=== PATIENT | male | born 1965 | race Hispanic/Latino ===

== ENCOUNTER 2019-04-23 01:36 | Inpatient (IN) | payer OTHER ==
[~2019-04-23] VITALS: Ht 167.6 cm; Wt 67.4 kg
[2019-04-23 02:08] LABS: BASOPHILS % (AUTO) 0.6 % (0.0-5.0); EOSINOPHILS % (AUTO) 1.8 % (0.0-8.0); HEMATOCRIT 37.1 % (42-54); MEAN CORPUSCULAR HGB CONC 34.9 g/dL (32.0-36.0); MEAN CORPUSCULAR VOLUME 88.9 fL (79-99); MONOCYTES % (AUTO) 11.2 % (3.0-13.0); NEUTROPHILS % (AUTO) 77.4 % (40.0-77.0); NUCLEATED RED BLOOD CELLS 0.1 % (0.0-0.19); PLATELET COUNT (AUTO) 405 K/uL (130-400); RED BLOOD CELL COUNT(AUTO) 4.18 MIL/uL (4.50-6.20); RED CELL DISTRIBUTION WIDTH 12.1 % (11.0-15.5); WHITE BLOOD COUNT (AUTO) 11.7 K/uL (4.8-10.8)
[2019-04-23 02:19] LABS: APPEARANCE,URINE Clear (CLEAR); BILIRUBIN,URINE Negative (NEGATIVE); COLOR,URINE Yellow (YELLOW); GLUCOSE, URINE (UA) >=1000 mg/dL (NEGATIVE); KETONES,URINE Negative (NEGATIVE); LEUKOCYTE ESTERASE ,URINE Negative (NEGATIVE); NITRATE,URINE Negative (NEGATIVE); OCCULT BLOOD,URINE Negative (NEGATIVE); PROTEIN,URINE Negative (NEGATIVE)
[2019-04-23 02:25] LABS: INR 1.03 (0.85-1.15); PROTHROMBIN TIME 10.8 SEC (9.6-11.6)
[2019-04-23 02:28] LABS: ALBUMIN 2.7 g/dL (3.5-5.0); BILIRUBIN,DIRECT 0.2 mg/dL (0.0-0.3); BILIRUBIN,TOTAL 0.6 mg/dL (0.2-1.0); CREATININE 1.2 mg/dL (0.5-1.5); POTASSIUM 4.5 mmol/L (3.5-5.1); TOTAL PROTEIN, SERUM 6.8 g/dL (6.0-8.3)
[2019-04-23 03:11] LABS: BACTERIA,URINE Few /HPF (None Seen); RBC,URINE None Seen /HPF (0-1); SQUAMOUS EPITHELIAL CELL,UR 0-2 /HPF (0-2); URIC ACID CRYSTALS,URINE Few /LPF (None Seen); WBC,URINE 0-1 /HPF (0-1)
[2019-04-23 03:12] LABS: HYALINE CASTS, URINE 0-1 /LPF (0-1 /LPF)
[2019-04-23] MEDS ORDERED: ONDANSETRON HCL 4 MG/2 ML VIAL ONE (04:12)
[2019-04-23] MEDS ORDERED: MORPHINE SULFATE 2 MG/ML 1ML SYG ONE (04:12)
[2019-04-23] MEDS ORDERED: ZOSYN 3.375GM+NS 50ML 50 ML IV ONE (04:17)
[2019-04-23] MEDS ORDERED: SODIUM CHLORIDE 0.9% 1000ML 1,000 ML IV SCH (05:24)
[2019-04-23] MEDS ORDERED: ACETAMINOPHEN 325 MG TAB PO PRN ×2 (05:30)
[2019-04-23] MEDS ORDERED: INSULIN HUMULIN R 100 UNIT/ML 3ML ONE (07:41)
[2019-04-23] MEDS ORDERED: FAMOTIDINE/PF 20 MG/2 ML VIAL IV ONE (08:28)
[2019-04-23] MEDS ORDERED: MORPHINE SULFATE 4 MG/1ML SYG ONE (08:51)
[2019-04-23] MEDS ORDERED: SODIUM CHLORIDE 0.9% 1000ML 1,000 ML IV ONE (08:52)
[2019-04-23 09:10] VITALS: BP 147/92
--- NOTE | 2019-04-23 09:15 | NUR ---
Direct admit from the ER with c/o pain to abdomen and increased BS levels. Addendum: 04/23/19 at 1113 by PARISH MASSEY RN RN Amended: Links added.
--- NOTE | 2019-04-23 10:02 | NUR ---
Notified Dr. Thorpe of consult.
[2019-04-23] MEDS ORDERED: DICY10 PO ×2 (11:50)
[2019-04-23] MEDS ORDERED: [UNRECOGNIZED DRUG - CODE] MC ×4 (11:50)
[2019-04-23] MEDS ORDERED: PANT40TA25 PO ×2 (11:50)
[2019-04-23] MEDS ORDERED: SIME40DR51 PO ×2 (11:50)
[2019-04-23] MEDS ORDERED: KETO10TA2 PO ×2 (11:50)
[2019-04-23] MEDS ORDERED: PROP40TA7 PO ×2 (11:50)
[2019-04-23] MEDS ORDERED: RANI300C PO ×2 (11:50)
[2019-04-23] MEDS: FAMOTIDINE/PF 20 MG/2 ML VIAL IV SCH ×2 (11:50→21:30)
[2019-04-23] MEDS ORDERED: FURO40TA7 PO ×2 (11:50)
[2019-04-23] MEDS ORDERED: VITA400C70 PO ×2 (11:50)
[2019-04-23] MEDS ORDERED: METF500S7 PO ×2 (11:50)
[2019-04-23 12:00] VITALS: BP 137/88
[2019-04-23] MEDS: CEFTRIAXONE SODIUM 1 GM IVP SCH (12:28)
[2019-04-23] MEDS: INSULIN HUMULIN R 100 UNIT/ML 3ML SQ SCH ×3 (12:36→21:00)
[2019-04-23] MEDS: ONDANSETRON HCL 4 MG/2 ML VIAL IV PRN (13:19)
[2019-04-23] MEDS: MORPHINE SULFATE 4 MG/1ML SYG IV PRN ×3 (14:05→22:49)
[2019-04-23 16:00] VITALS: BP 140/95
--- NOTE | 2019-04-23 16:00 | NUR ---
INITIAL Met w pt and family- i\employed, indp of adls, no dme,/ no insurance, /community resource pktt given new dx Yoandy gomez to follow Addendum: 04/25/19 at 0842 by MOLLY AMAYA RN CM Amended: Links added.
[2019-04-23 20:29] VITALS: BP 148/99
[2019-04-23] MEDS: INSULIN GLARGINE 100 UNITS/ML 10 ML VIAL SQ SCH (21:48)
[2019-04-24 00:21] VITALS: BP 152/98
[2019-04-24] MEDS: MORPHINE SULFATE 4 MG/1ML SYG IV PRN ×5 (03:12→21:30)
[2019-04-24 04:43] VITALS: BP 142/91
[2019-04-24 05:18] LABS: HEMATOCRIT 37.2 % (42-54); MEAN CORPUSCULAR HEMOGLOBIN 30.6 pg (27.0-33.0); MEAN CORPUSCULAR HGB CONC 34.7 g/dL (32.0-36.0); MEAN CORPUSCULAR VOLUME 88.2 fL (79-99); PLATELET COUNT (AUTO) 443 K/uL (130-400); RED BLOOD CELL COUNT(AUTO) 4.22 MIL/uL (4.50-6.20); RED CELL DISTRIBUTION WIDTH 12.2 % (11.0-15.5); WHITE BLOOD COUNT (AUTO) 14.1 K/uL (4.8-10.8)
[2019-04-24 05:32] LABS: ALBUMIN 2.5 g/dL (3.5-5.0); BILIRUBIN,TOTAL 0.5 mg/dL (0.2-1.0); CREATININE 1.1 mg/dL (0.5-1.5); POTASSIUM 4.7 mmol/L (3.5-5.1); TOTAL PROTEIN, SERUM 6.7 g/dL (6.0-8.3)
[2019-04-24] MEDS: INSULIN HUMULIN R 100 UNIT/ML 3ML SQ SCH ×4 (06:59→21:00)
[2019-04-24] MEDS: INSULIN GLARGINE 100 UNITS/ML 10 ML VIAL SQ SCH ×2 (07:09→21:42)
[2019-04-24 08:00] VITALS: BP 151/94
[2019-04-24] MEDS: FAMOTIDINE/PF 20 MG/2 ML VIAL IV SCH ×2 (08:42→21:30)
[2019-04-24] MEDS: CEFTRIAXONE SODIUM 1 GM IVP SCH (08:42)
[2019-04-24] MEDS: ENOXAPARIN SODIUM 40 MG/0.4 ML SYRINGE SQ SCH (08:43)
[2019-04-24] MEDS: ONDANSETRON HCL 4 MG/2 ML VIAL IV PRN (08:43)
[2019-04-24 12:06] VITALS: BP 128/82
--- NOTE | 2019-04-24 13:30 | NUR ---
ALESHA Salmon with Dr. Thorpe in to see pt, states Dr. Thorpe will be in to see the pt. tomorrow and decide on course of action.
[2019-04-24 16:00] VITALS: BP 160/97
--- NOTE | 2019-04-24 18:35 | NUR ---
Notified Kam THOMAS, pt. with anxiety, BP 137/100, HR 118, O2 sat 99%, BS 181. Received orders.
[2019-04-24] MEDS ORDERED: CLONIDINE HCL 0.1 MG TABLET PO PRN (18:45)
[2019-04-24] MEDS: LORAZEPAM 2 MG/ML 1 ML VIAL IVP PRN (19:05)
--- NOTE | 2019-04-24 19:05 | NUR ---
Pt. continues to be anxious, BP has come down below the perimeters for clonidine. Administered the Ativan after inst. pt. and family. Endorsed pt. to oncoming nurse.
[2019-04-24 20:00] VITALS: BP 146/91
[2019-04-24] MEDS: PROPRANOLOL HCL 20 MG TAB PO SCH (21:30)
[2019-04-25] VITALS: BP 139/94
[2019-04-25] MEDS: MORPHINE SULFATE 4 MG/1ML SYG IV PRN ×4 (02:05→17:27)
[2019-04-25 04:00] VITALS: BP 139/95
[2019-04-25 04:43] LABS: BASOPHILS % (AUTO) 0.7 % (0.0-5.0); EOSINOPHILS % (AUTO) 1.2 % (0.0-8.0); HEMATOCRIT 37.7 % (42-54); LYMPHOCYTES % (AUTO) 7.4 % (21.0-51.0); MEAN CORPUSCULAR HEMOGLOBIN 30.8 pg (27.0-33.0); MEAN CORPUSCULAR HGB CONC 34.7 g/dL (32.0-36.0); MEAN CORPUSCULAR VOLUME 88.8 fL (79-99); MONOCYTES % (AUTO) 8.7 % (3.0-13.0); PLATELET COUNT (AUTO) 442 K/uL (130-400); RED BLOOD CELL COUNT(AUTO) 4.25 MIL/uL (4.50-6.20); RED CELL DISTRIBUTION WIDTH 12.2 % (11.0-15.5); WHITE BLOOD COUNT (AUTO) 13.7 K/uL (4.8-10.8)
[2019-04-25 04:59] LABS: CREATININE 1.2 mg/dL (0.5-1.5); POTASSIUM 5.6 mmol/L (3.5-5.1)
[2019-04-25] MEDS: LORAZEPAM 2 MG/ML 1 ML VIAL IVP PRN ×2 (05:37→17:27)
[2019-04-25] MEDS: INSULIN HUMULIN R 100 UNIT/ML 3ML SQ SCH ×4 (06:18→21:00)
[2019-04-25] MEDS: INSULIN GLARGINE 100 UNITS/ML 10 ML VIAL SQ SCH ×2 (06:20→21:00)
[2019-04-25 07:46] VITALS: BP 124/78
[2019-04-25] MEDS: LOSARTAN 100 MG TABLET PO SCH (08:40)
[2019-04-25] MEDS: FAMOTIDINE/PF 20 MG/2 ML VIAL IV SCH ×2 (08:40→21:37)
[2019-04-25] MEDS: PROPRANOLOL HCL 20 MG TAB PO SCH ×2 (08:40→21:00)
[2019-04-25] MEDS: CEFTRIAXONE SODIUM 1 GM IVP SCH (08:43)
[2019-04-25] MEDS: ENOXAPARIN SODIUM 40 MG/0.4 ML SYRINGE SQ SCH (08:43)
[2019-04-25] MEDS: SODIUM CHLORIDE 0.9% 1000ML 1,000 ML IV SCH (09:04)
--- NOTE | 2019-04-25 10:30 | NUR ---
AWARE OF CONSULT PER MD, CONSULT ONCOLOGY DUE TO PATIENT ALREADY HAVING AN EGD AND COLONOSCOPY WITH RESULTS IN CHART. CALLED, MESSAGE LEFT. RETURN CALL PENDING. PATIENT AND FAMILY AWARE. Addendum: 04/25/19 at 2009 by RAF DENSON RN RN Amended: Links added.
[2019-04-25 11:05] VITALS: BP 129/88
--- NOTE | 2019-04-25 12:33 | NUR ---
RD Notification Patient with Abdominal mass, Ascites, uncontrolled NIDDM, pending GI consult. Current diet 60gm CCD, no Juice. Patient LBM 04/24/19. Patient monitored labs: Na 123, K 5.6, Cl 87, BUN 27, Glu 183, Alb 2.5. RD to continue to monitor. Please notify RD as nutritional concerns arise. Thank you. Addendum: 04/25/19 at [address] Amended: Links added.
[2019-04-25 15:18] LABS: APPEARANCE,URINE Clear (CLEAR); BILIRUBIN,URINE Small (NEGATIVE); COLOR,URINE Dark Yellow (YELLOW); GLUCOSE, URINE (UA) Negative (NEGATIVE); KETONES,URINE Trace mg/dL (NEGATIVE); LEUKOCYTE ESTERASE ,URINE Trace (NEGATIVE); NITRATE,URINE Negative (NEGATIVE); OCCULT BLOOD,URINE Negative (NEGATIVE); PROTEIN,URINE Negative (NEGATIVE); SODIUM,URINE RANDOM < 15 mmol/l (40-220)
[2019-04-25 15:29] LABS: BACTERIA,URINE Few /HPF (None Seen); RBC,URINE 0-1 /HPF (0-1); SQUAMOUS EPITHELIAL CELL,UR Rare /HPF (0-2); URIC ACID CRYSTALS,URINE Few /LPF (None Seen); WBC,URINE 0-1 /HPF (0-1)
[2019-04-25 16:36] VITALS: BP 111/71
[2019-04-25 20:00] VITALS: BP 91/64
[2019-04-26] VITALS (10 sets, daily range): BP systolic 98–135; BP diastolic 62–83
[2019-04-26] MEDS: MORPHINE SULFATE 2 MG/ML 1ML SYG IV PRN ×2 (01:45→06:24)
[2019-04-26] MEDS: SODIUM CHLORIDE 0.9% 1000ML 1,000 ML IV SCH ×2 (02:30→10:40)
[2019-04-26] MEDS: INSULIN HUMULIN R 100 UNIT/ML 3ML SQ SCH ×4 (05:51→21:00)
[2019-04-26] MEDS: INSULIN GLARGINE 100 UNITS/ML 10 ML VIAL SQ SCH ×2 (06:12→21:00)
[2019-04-26 06:38] LABS: CREATININE 1.1 mg/dL (0.5-1.5); THYROID STIMULATING HORMONE 2.6 uIU/mL (0.36-3.74); URIC ACID 8.6 mg/dL (2.6-7.2)
[2019-04-26 06:51] LABS: BASOPHILS % (AUTO) 0.7 % (0.0-5.0); EOSINOPHILS % (AUTO) 1.4 % (0.0-8.0); LYMPHOCYTES % (AUTO) 8.9 % (21.0-51.0); MEAN CORPUSCULAR HEMOGLOBIN 30.2 pg (27.0-33.0); MEAN CORPUSCULAR HGB CONC 34.2 g/dL (32.0-36.0); MEAN CORPUSCULAR VOLUME 88.1 fL (79-99); MONOCYTES % (AUTO) 8.9 % (3.0-13.0); NEUTROPHILS % (AUTO) 80.1 % (40.0-77.0); PLATELET COUNT (AUTO) 486 K/uL (130-400); RED CELL DISTRIBUTION WIDTH 12.3 % (11.0-15.5); WHITE BLOOD COUNT (AUTO) 13.3 K/uL (4.8-10.8)
[2019-04-26 08:24] LABS: APPEARANCE,URINE Clear (CLEAR); BILIRUBIN,URINE Negative (NEGATIVE); COLOR,URINE Yellow (YELLOW); GLUCOSE, URINE (UA) Negative (NEGATIVE); KETONES,URINE 40 mg/dL (NEGATIVE); LEUKOCYTE ESTERASE ,URINE Trace (NEGATIVE); NITRATE,URINE Negative (NEGATIVE); OCCULT BLOOD,URINE Negative (NEGATIVE); PROTEIN,URINE Negative (NEGATIVE)
[2019-04-26 08:27] LABS: INR 1.07 (0.85-1.15); PARTIAL THROMBOPLASTIN TIME 33.9 SEC (26.3-35.5); PROTHROMBIN TIME 11.2 SEC (9.6-11.6)
[2019-04-26 08:31] LABS: BACTERIA,URINE None Seen /HPF (None Seen); FINE GRANULAR CASTS,URINE 0-2 /LPF (None Seen); RBC,URINE 0-1 /HPF (0-1); SQUAMOUS EPITHELIAL CELL,UR 0-2 /HPF (0-2); URIC ACID CRYSTALS,URINE Moderate /LPF (None Seen); WBC,URINE 0-1 /HPF (0-1)
[2019-04-26] MEDS: LOSARTAN 100 MG TABLET PO SCH (09:00)
[2019-04-26] MEDS: ENOXAPARIN SODIUM 40 MG/0.4 ML SYRINGE SQ SCH (09:00)
[2019-04-26] MEDS: FAMOTIDINE/PF 20 MG/2 ML VIAL IV SCH ×2 (10:39→21:22)
[2019-04-26] MEDS: FOLIC ACID/VITAMIN B COMP W-C 1 MG CAPSULE PO SCH (10:39)
[2019-04-26] MEDS: PROPRANOLOL HCL 20 MG TAB PO SCH ×2 (10:39→21:22)
[2019-04-26] MEDS: CEFTRIAXONE SODIUM 1 GM IVP SCH (10:40)
--- NOTE | 2019-04-26 12:15 | NUR ---
U/S GD PARACENTESIS PROCEDURE PERFORMED BY DR Shefali SALAZAR. PUNCTURE SITE RLQ AND PATIENT TOLERATED PROCEDURE WELL. TOTAL REMOVED 6.2 LITERS OF CLOUDY YELLOW FLUID. END OF PROCEDURE AT 1200. CATHETER REMOVED AND DRESSING APPLIED. NO BLEEDING NOTED. REPORT GIVEN TO Arvind NICOLE RN AND PATIENT TRANSPORTED TO [facility] VIA W/C AT 1215. AAO X3 WITH NO C/O PAIN. SPECIMEN SENT TO LAB.
[2019-04-26] MEDS ORDERED: ALBUMIN (HUMAN) 25% 200 ML IV ONE (13:00)
[2019-04-26 13:16] LABS: APPEARANCE BODY FLUID CLEAR (CLEAR); BODY FLUID WBC 865 /cu. mm.; COLOR,BODY FLUID YELLOW (LT YELLOW); SPECIMENTYPE,BODY FLUID ASCITES; TOTAL VOLUME,BODY FLUID 6300 mL
[2019-04-26 13:17] LABS: BODY FLUID RBC 2960 /cu. mm.
[2019-04-26 13:27] LABS: BF EOSINOPHIL 1 %; BF LYMPHOCYTE 79 %; BF MESOTHELIAL 3 %
--- NOTE | 2019-04-26 17:41 | NUR ---
WAITING FOR ONCOLOGY INPUT PT patricia amaro many family members at bedside- eating poorly and using pain medication. CM to follow Addendum: 04/26/19 at 1742 by MOLLY AMAYA RN CM Amended: Links added.
--- NOTE | 2019-04-26 20:00 | NUR ---
DR. ART AT BEDSIDE; ORDERING BIOPSY OF MESSENTERIC MASS.
[2019-04-27] VITALS (14 sets, daily range): BP systolic 82–132; BP diastolic 44–70
[2019-04-27] MEDS: LORAZEPAM 2 MG/ML 1 ML VIAL IVP PRN ×3 (02:30→17:26)
[2019-04-27] MEDS: SODIUM CHLORIDE 0.9% 1000ML 1,000 ML IV SCH (04:06)
[2019-04-27] MEDS: MORPHINE SULFATE 2 MG/ML 1ML SYG IV PRN ×2 (04:07→09:52)
[2019-04-27 05:45] LABS: BASOPHILS % (AUTO) 0.4 % (0.0-5.0); EOSINOPHILS % (AUTO) 0.9 % (0.0-8.0); HEMATOCRIT 35.3 % (42-54); LYMPHOCYTES % (AUTO) 6.7 % (21.0-51.0); MEAN CORPUSCULAR HEMOGLOBIN 30.7 pg (27.0-33.0); MEAN CORPUSCULAR HGB CONC 34.7 g/dL (32.0-36.0); MEAN CORPUSCULAR VOLUME 88.3 fL (79-99); MONOCYTES % (AUTO) 9.3 % (3.0-13.0); NEUTROPHILS % (AUTO) 82.7 % (40.0-77.0); NUCLEATED RED BLOOD CELLS 0.1 % (0.0-0.19); PLATELET COUNT (AUTO) 402 K/uL (130-400); WHITE BLOOD COUNT (AUTO) 12.3 K/uL (4.8-10.8)
[2019-04-27 05:50] LABS: CREATININE 0.8 mg/dL (0.5-1.5); POTASSIUM 4.9 mmol/L (3.5-5.1)
[2019-04-27] MEDS: INSULIN HUMULIN R 100 UNIT/ML 3ML SQ SCH ×4 (06:59→21:34)
[2019-04-27] MEDS: INSULIN GLARGINE 100 UNITS/ML 10 ML VIAL SQ SCH ×2 (07:30→21:34)
[2019-04-27] MEDS: ENOXAPARIN SODIUM 40 MG/0.4 ML SYRINGE SQ SCH (09:00)
[2019-04-27] MEDS: FOLIC ACID/VITAMIN B COMP W-C 1 MG CAPSULE PO SCH (09:00)
[2019-04-27] MEDS: PROPRANOLOL HCL 20 MG TAB PO SCH ×2 (09:00→21:37)
[2019-04-27] MEDS: LOSARTAN 100 MG TABLET PO SCH (09:00)
[2019-04-27] MEDS: FAMOTIDINE/PF 20 MG/2 ML VIAL IV SCH ×2 (09:52→21:37)
[2019-04-27] MEDS: CEFTRIAXONE SODIUM 1 GM IVP SCH (09:52)
[2019-04-27] MEDS ORDERED: MIDAZOLAM HCL 1 MG/ML 2ML VIAL ONE (13:01)
[2019-04-27] MEDS ORDERED: FENTANYL CITRATE PF 50 MCG/1 ML 2ML VIAL ONE (13:01)
--- NOTE | 2019-04-27 13:35 | NUR ---
CT GUIDED BIOPSY MESENTERIC MASS PROCEDURE PERFORMED BY DR RM. PUNCTURE SITE LEFT LATERAL RIB CAGE AND PATIENT TOLERATED PROCEDURE WELL. TOTAL 4 SPECIMENS REMOVED OF MESENTERIC MASS. END OF PROCEDURE AT 1347. CATHETER REMOVED AND DRESSING APPLIED. NO BLEEDING NOTED. POST CT SCAN NO PNEUMOTHORAX SEEN PER DR. RM. REPORT GIVEN TO MACHO KURTZ AND PATIENT TRANSPORTED TO [facility] VIA BED AT 1405. PT STABLE, AAO X3 WITH NO C/O PAIN. SPECIMEN SENT TO LAB.
[2019-04-27] MEDS: METRONIDAZOLE 500MG/100ML BAG 100 ML IV SCH ×2 (14:43→21:52)
--- NOTE | 2019-04-27 14:47 | NUR ---
RD Follow up note Patient away at time of procedure. RD spoke with family member about PO intake (0%), RD recommend to add Glucerna TID for increased oral intake; Pt family member agrees. Pt LBM 04/24/19. Patient monitored labs: Na 123, Cl 90, BUN 23, Glu 146, Ca 7.9, Alb 2.5. RD to continue to monitor. Please notify RD as nutritional concerns arise. Thank you. Addendum: 04/27/19 at [address] Amended: Links added.
[2019-04-27] MEDS: MORPHINE SULFATE 4 MG/1ML SYG IV PRN (21:38)
[2019-04-28] VITALS: BP 113/72
[2019-04-28] MEDS: MORPHINE SULFATE 2 MG/ML 1ML SYG IV PRN ×3 (03:57→21:18)
[2019-04-28] MEDS: LORAZEPAM 2 MG/ML 1 ML VIAL IVP PRN ×2 (03:57→23:18)
[2019-04-28 04:00] VITALS: BP 100/57
[2019-04-28 05:48] LABS: HEMATOCRIT 34.3 % (42-54); MEAN CORPUSCULAR HEMOGLOBIN 30.2 pg (27.0-33.0); MEAN CORPUSCULAR HGB CONC 34.4 g/dL (32.0-36.0); MEAN CORPUSCULAR VOLUME 87.9 fL (79-99); PLATELET COUNT (AUTO) 414 K/uL (130-400); WHITE BLOOD COUNT (AUTO) 11.1 K/uL (4.8-10.8)
[2019-04-28] MEDS: METRONIDAZOLE 500MG/100ML BAG 100 ML IV SCH ×3 (05:51→21:18)
[2019-04-28 06:00] LABS: CREATININE 0.8 mg/dL (0.5-1.5); POTASSIUM 4.6 mmol/L (3.5-5.1)
[2019-04-28] MEDS: INSULIN HUMULIN R 100 UNIT/ML 3ML SQ SCH ×4 (06:57→21:32)
[2019-04-28] MEDS: INSULIN GLARGINE 100 UNITS/ML 10 ML VIAL SQ SCH ×2 (07:05→21:33)
[2019-04-28 08:00] VITALS: BP 95/60
[2019-04-28] MEDS: FAMOTIDINE/PF 20 MG/2 ML VIAL IV SCH ×2 (08:49→21:17)
[2019-04-28] MEDS: ENOXAPARIN SODIUM 40 MG/0.4 ML SYRINGE SQ SCH (08:50)
[2019-04-28] MEDS: FOLIC ACID/VITAMIN B COMP W-C 1 MG CAPSULE PO SCH (08:50)
[2019-04-28] MEDS: PROPRANOLOL HCL 20 MG TAB PO SCH ×2 (08:50→21:17)
[2019-04-28] MEDS: CEFTRIAXONE SODIUM 1 GM IVP SCH (08:50)
[2019-04-28 12:00] VITALS: BP 114/75
[2019-04-28] MEDS: MORPHINE SULFATE 4 MG/1ML SYG IV PRN ×2 (12:55→17:09)
[2019-04-28 16:00] VITALS: BP 107/63
[2019-04-28 19:00] VITALS: BP 109/75
[2019-04-29] VITALS (7 sets, daily range): BP systolic 106–119; BP diastolic 72–80
[2019-04-29] MEDS: MORPHINE SULFATE 4 MG/1ML SYG IV PRN ×4 (01:33→20:24)
[2019-04-29 04:51] LABS: BASOPHILS % (AUTO) 0.7 % (0.0-5.0); EOSINOPHILS % (AUTO) 1.6 % (0.0-8.0); HEMATOCRIT 35.8 % (42-54); LYMPHOCYTES % (AUTO) 8.3 % (21.0-51.0); MEAN CORPUSCULAR HEMOGLOBIN 31.7 pg (27.0-33.0); MEAN CORPUSCULAR HGB CONC 35.8 g/dL (32.0-36.0); MEAN CORPUSCULAR VOLUME 88.5 fL (79-99); NEUTROPHILS % (AUTO) 78.4 % (40.0-77.0); NUCLEATED RED BLOOD CELLS 0.1 % (0.0-0.19); PLATELET COUNT (AUTO) 416 K/uL (130-400); RED BLOOD CELL COUNT(AUTO) 4.05 MIL/uL (4.50-6.20); RED CELL DISTRIBUTION WIDTH 11.9 % (11.0-15.5)
[2019-04-29 04:56] LABS: CREATININE 0.8 mg/dL (0.5-1.5); POTASSIUM 4.3 mmol/L (3.5-5.1)
[2019-04-29] MEDS: MORPHINE SULFATE 2 MG/ML 1ML SYG IV PRN (06:08)
[2019-04-29] MEDS: METRONIDAZOLE 500MG/100ML BAG 100 ML IV SCH ×3 (06:08→22:47)
[2019-04-29] MEDS: INSULIN GLARGINE 100 UNITS/ML 10 ML VIAL SQ SCH ×2 (07:24→20:21)
[2019-04-29] MEDS: INSULIN HUMULIN R 100 UNIT/ML 3ML SQ SCH ×4 (07:30→21:00)
[2019-04-29] MEDS: FAMOTIDINE/PF 20 MG/2 ML VIAL IV SCH ×2 (09:01→22:48)
[2019-04-29] MEDS: FOLIC ACID/VITAMIN B COMP W-C 1 MG CAPSULE PO SCH (09:01)
[2019-04-29] MEDS: PROPRANOLOL HCL 20 MG TAB PO SCH ×2 (09:01→20:24)
[2019-04-29] MEDS: CEFTRIAXONE SODIUM 1 GM IVP SCH (09:02)
[2019-04-29] MEDS: ENOXAPARIN SODIUM 40 MG/0.4 ML SYRINGE SQ SCH (09:02)
[2019-04-29] MEDS: LORAZEPAM 2 MG/ML 1 ML VIAL IVP PRN (09:16)
[2019-04-29] MEDS: ONDANSETRON HCL 4 MG/2 ML VIAL IV PRN ×2 (10:47→16:44)
[2019-04-29] MEDS ORDERED: ZOLPIDEM TARTRATE 5 MG TAB PO PRN (16:15)
[2019-04-29] MEDS: LUBIPROSTONE 24 MCG CAP PO SCH (16:44)
--- NOTE | 2019-04-29 17:40 | NUR ---
ONCOLOGY DR. ART IN TO SEE PATIENT AND GIVE RESULTS OF BIOPSY. TREATMENT OPTIONS WERE EXPLAINED. NEW ORDERS RECEIVED.
[2019-04-30] MEDS: MORPHINE SULFATE 4 MG/1ML SYG IV PRN (01:56)
[2019-04-30] MEDS: LORAZEPAM 2 MG/ML 1 ML VIAL IVP PRN ×2 (02:05→11:15)
[2019-04-30 03:44] VITALS: BP 103/65
[2019-04-30 03:54] LABS: BASOPHILS % (AUTO) 0.7 % (0.0-5.0); HEMATOCRIT 36.2 % (42-54); LYMPHOCYTES % (AUTO) 7.2 % (21.0-51.0); MEAN CORPUSCULAR HEMOGLOBIN 31.3 pg (27.0-33.0); MEAN CORPUSCULAR HGB CONC 35.2 g/dL (32.0-36.0); MEAN CORPUSCULAR VOLUME 88.8 fL (79-99); MONOCYTES % (AUTO) 8.9 % (3.0-13.0); NEUTROPHILS % (AUTO) 82.2 % (40.0-77.0); PLATELET COUNT (AUTO) 410 K/uL (130-400); RED BLOOD CELL COUNT(AUTO) 4.08 MIL/uL (4.50-6.20); RED CELL DISTRIBUTION WIDTH 12.4 % (11.0-15.5); WHITE BLOOD COUNT (AUTO) 11.7 K/uL (4.8-10.8)
[2019-04-30 04:03] LABS: CREATININE 0.7 mg/dL (0.5-1.5); POTASSIUM 4.7 mmol/L (3.5-5.1)
[2019-04-30] MEDS: INSULIN HUMULIN R 100 UNIT/ML 3ML SQ SCH ×2 (05:57→11:30)
[2019-04-30] MEDS: METRONIDAZOLE 500MG/100ML BAG 100 ML IV SCH ×2 (06:27→13:50)
[2019-04-30] MEDS: INSULIN GLARGINE 100 UNITS/ML 10 ML VIAL SQ SCH (06:28)
[2019-04-30 08:00] VITALS: BP 118/76
[2019-04-30] MEDS ORDERED: MORPHINE SULFATE 2 MG/ML 1ML SYG ONE (09:09)
[2019-04-30] MEDS: LUBIPROSTONE 24 MCG CAP PO SCH (09:11)
[2019-04-30] MEDS: FOLIC ACID/VITAMIN B COMP W-C 1 MG CAPSULE PO SCH (09:11)
[2019-04-30] MEDS: PROPRANOLOL HCL 20 MG TAB PO SCH (09:11)
[2019-04-30] MEDS: ENOXAPARIN SODIUM 40 MG/0.4 ML SYRINGE SQ SCH (09:11)
[2019-04-30] MEDS: FAMOTIDINE/PF 20 MG/2 ML VIAL IV SCH (09:11)
[2019-04-30] MEDS: CEFTRIAXONE SODIUM 1 GM IVP SCH (09:11)
[2019-04-30] MEDS: MORPHINE SULFATE 2 MG/ML 1ML SYG IV PRN (09:12)
[2019-04-30] MEDS ORDERED: MORPHINE SULFATE 4 MG/1ML SYG IVP PRN (09:15)
[2019-04-30] MEDS ORDERED: MORPHINE SULFATE 2 MG/ML 1ML SYG IVP PRN (09:15)
[2019-04-30] MEDS ORDERED: MORPHINE SULFATE 5 MG/ML VIAL IV PRN (09:15)
[2019-04-30 11:51] VITALS: BP 122/81
[2019-04-30] MEDS ORDERED: ALPR0.5T PO ×2 (16:06)
[2019-04-30] MEDS ORDERED: DOCU-116 PO ×2 (16:06)
[2019-04-30 16:49] VITALS: BP 107/72
== END 2019-04-30 18:03 | disposition home or self-care (01) | DRG 436 ==
LOC: EDH 01:36 → EDHIP 01:37 → 4CH 08:47
PROVIDERS: ADMIT Internal Medicine; ATTEND Internal Medicine
PROC: 0W9G3ZZ Drainage of Peritoneal Cavity, Percutaneous Approach (ICD-10-PCS; principal; 2019-04-26)
PROC: 0DBV3ZX Excision of Mesentery, Percutaneous Approach, Diagnostic (ICD-10-PCS; 2019-04-27)
DX: C25.9 Malignant neoplasm of pancreas, unspecified (principal); E44.0 Moderate protein-calorie malnutrition; E87.1 Hypo-osmolality and hyponatremia; L03.90 Cellulitis, unspecified; R18.8 Other ascites; C78.6 Secondary malignant neoplasm of retroperitoneum and peritoneum; E11.9 Type 2 diabetes mellitus without complications; E87.5 Hyperkalemia; G47.00 Insomnia, unspecified; K59.00 Constipation, unspecified; I10 Essential (primary) hypertension; K74.60 Unspecified cirrhosis of liver; N19 Unspecified kidney failure; R62.7 Adult failure to thrive; Z79.84 Long term (current) use of oral hypoglycemic drugs; F17.210 Nicotine dependence, cigarettes, uncomplicated; Z68.24 Body mass index [BMI] 24.0-24.9, adult
CPT/HCPCS: 36415; 49083; 49180; 74176; 80048; 80053; 80076; 81001; 82140; 82378; 82533; 82948; 83605; 83690; 83930; 84300; 84443; 84484; 84550; 85025; 85027; 85610; 85730; 86316; 87040; 87071; 87205; 89051; 93005; 97039; 99152; G0378; J0696; J1650; J1815; J2060; J2250; J2270; J2405; J2543; J3010; J3490; J7030; P9046

== ENCOUNTER 2019-05-01 02:45 | Emergency (ER) | payer OTHER ==
[~2019-05-01 02:45] MED LIST: ALPR0.5T PO; DICY10 PO; DOCU-116 PO; FURO40TA7 PO; KETO10TA2 PO; METF500S7 PO; PANT40TA25 PO; PROP40TA7 PO; RANI300C PO; SIME40DR51 PO; VITA400C70 PO; [UNRECOGNIZED DRUG - CODE] MC
[2019-05-01] MEDS ORDERED: ONDANSETRON HCL 4 MG/2 ML VIAL ONE (04:07)
[2019-05-01] MEDS ORDERED: METOCLOPRAMIDE 10 MG/2 ML VIAL ONE (04:07)
[2019-05-01] MEDS ORDERED: MORPHINE SULFATE 2 MG/ML 1ML SYG ONE (04:07)
[2019-05-01] MEDS ORDERED: SODIUM CHLORIDE 0.9% 1000ML 1,000 ML IV ONE (04:08)
[2019-05-01 04:59] LABS: BASOPHILS % (AUTO) 0.4 % (0.0-5.0); EOSINOPHILS % (AUTO) 0.5 % (0.0-8.0); HEMATOCRIT 36.1 % (42-54); LYMPHOCYTES % (AUTO) 6.5 % (21.0-51.0); MEAN CORPUSCULAR HEMOGLOBIN 30.5 pg (27.0-33.0); MEAN CORPUSCULAR HGB CONC 34.5 g/dL (32.0-36.0); MEAN CORPUSCULAR VOLUME 88.3 fL (79-99); MONOCYTES % (AUTO) 8.7 % (3.0-13.0); NEUTROPHILS % (AUTO) 83.9 % (40.0-77.0); PLATELET COUNT (AUTO) 467 K/uL (130-400); RED BLOOD CELL COUNT(AUTO) 4.09 MIL/uL (4.50-6.20); RED CELL DISTRIBUTION WIDTH 12.5 % (11.0-15.5); WHITE BLOOD COUNT (AUTO) 13.5 K/uL (4.8-10.8)
[2019-05-01 05:04] LABS: CREATININE 0.9 mg/dL (0.5-1.5); POTASSIUM 4.9 mmol/L (3.5-5.1)
[2019-05-01 05:09] LABS: ALBUMIN 2.2 g/dL (3.5-5.0); BILIRUBIN,TOTAL 0.6 mg/dL (0.2-1.0); TOTAL PROTEIN, SERUM 5.8 g/dL (6.0-8.3)
[2019-05-01 05:12] LABS: INR 1.12 (0.85-1.15); PARTIAL THROMBOPLASTIN TIME 34.1 SEC (26.3-35.5); PROTHROMBIN TIME 11.7 SEC (9.6-11.6)
[2019-05-01 05:27] LABS: B-TYPE NATRIURETIC PEPTIDE 86 pg/mL (0-100)
[2019-05-01] MEDS ORDERED: LORAZEPAM 2 MG/ML 1 ML VIAL ONE (05:37)
== END 2019-05-01 06:52 | disposition home or self-care (01) ==
LOC: EDH 02:45
DX: R18.8 Other ascites (principal); E87.1 Hypo-osmolality and hyponatremia; E11.9 Type 2 diabetes mellitus without complications; I10 Essential (primary) hypertension; Z79.4 Long term (current) use of insulin
CPT/HCPCS: 36415; 74176; 80053; 82550; 83605; 83690; 83880; 84484; 85025; 85610; 85730; 96374; 96375; 99285; J2060; J2405; J2765; J7030

== ENCOUNTER 2019-05-04 19:46 | Inpatient (IN) | payer OTHER ==
[~2019-05-04] VITALS: Ht 167.6 cm; Wt 66.2 kg
[2019-05-04] MEDS ORDERED: SODIUM CHLORIDE 0.9% 500ML 500 ML IV ONE ×2 (20:46→22:01)
[2019-05-04 21:01] LABS: BASOPHILS % (AUTO) 0.3 % (0.0-5.0); EOSINOPHILS % (AUTO) 0.5 % (0.0-8.0); HEMATOCRIT 35.2 % (42-54); LYMPHOCYTES % (AUTO) 5.7 % (21.0-51.0); MEAN CORPUSCULAR HEMOGLOBIN 30.6 pg (27.0-33.0); MONOCYTES % (AUTO) 8.3 % (3.0-13.0); NEUTROPHILS % (AUTO) 85.2 % (40.0-77.0); PLATELET COUNT (AUTO) 346 K/uL (130-400); RED BLOOD CELL COUNT(AUTO) 3.91 MIL/uL (4.50-6.20); WHITE BLOOD COUNT (AUTO) 13.7 K/uL (4.8-10.8)
[2019-05-04 21:13] LABS: INR 1.01 (0.85-1.15); PARTIAL THROMBOPLASTIN TIME 29.1 SEC (26.3-35.5); PROTHROMBIN TIME 10.6 SEC (9.6-11.6)
[2019-05-04 21:17] LABS: CREATININE 0.9 mg/dL (0.5-1.5); POTASSIUM 5.5 mmol/L (3.5-5.1)
[2019-05-04 21:22] LABS: ALBUMIN 2.1 g/dL (3.5-5.0); BILIRUBIN,TOTAL 0.6 mg/dL (0.2-1.0); MAGNESIUM 2.1 mg/dL (1.80-2.40); TOTAL PROTEIN, SERUM 6.4 g/dL (6.0-8.3)
[2019-05-04 21:47] LABS: B-TYPE NATRIURETIC PEPTIDE 35 pg/mL (0-100)
[2019-05-04] MEDS ORDERED: SODIUM CHLORIDE 0.9% 1000ML 1,000 ML IV SCH (22:33)
[2019-05-04] MEDS ORDERED: SODIUM POLYSTYRENE SULFONATE 15 GM/60 ML ML ONE (22:39)
[2019-05-04] MEDS ORDERED: INSULIN HUMULIN R 100 UNIT/ML 3ML ONE (22:40)
[2019-05-04] MEDS ORDERED: ONDANSETRON HCL 4 MG/2 ML VIAL IV PRN (22:45)
[2019-05-04] MEDS ORDERED: ACETAMINOPHEN 325 MG TAB PO PRN ×2 (22:45)
[2019-05-04 23:17] LABS: APPEARANCE,URINE CLEAR (CLEAR); BILIRUBIN,URINE MODERATE (NEGATIVE); GLUCOSE, URINE (UA) >=1000 mg/dL (NEGATIVE); KETONES,URINE 40 mg/dL (NEGATIVE); LEUKOCYTE ESTERASE ,URINE TRACE (NEGATIVE); NITRATE,URINE NEGATIVE (NEGATIVE); OCCULT BLOOD,URINE NEGATIVE (NEGATIVE); PROTEIN,URINE TRACE mg/dL (NEGATIVE)
[2019-05-04 23:22] LABS: COLOR,URINE DARK YELLOW (YELLOW)
[2019-05-04 23:25] LABS: BACTERIA,URINE Few /HPF (None Seen); MUCUS,URINE Rare LPF (None Seen); RBC,URINE 0-1 /HPF (0-1); YEAST,URINE BUDDING Rare /HPF (None Seen)
[2019-05-05] MEDS ORDERED: SODIUM CHLORIDE 0.9% 1000ML 1,000 ML IV ONE (01:00)
[2019-05-05] MEDS: SODIUM POLYSTYRENE SULFONATE 15 GM/60 ML ML RC SCH ×2 (01:40→19:56)
[2019-05-05 01:48] VITALS: BP 128/90
[2019-05-05 04:00] VITALS: BP 145/83
--- NOTE | 2019-05-05 07:00 | NUR ---
HOME MEDICATIONS/DR. BRANTLEY INFORMED DR. BRANTLEY HOME MEDICATION LIST UPDATED AND PENDING TO BE REVIEWED.
[2019-05-05] MEDS ORDERED: SODIUM POLYSTYRENE SULFONATE 15 GM/60 ML ML PO SCH (08:00)
[2019-05-05] MEDS: INSULIN HUMULIN R 100 UNIT/ML 3ML SQ SCH ×4 (08:38→20:56)
[2019-05-05 08:47] LABS: HEMOGLOBIN A1C 8.9 % (4.0-6.0)
[2019-05-05] MEDS: HYDROCODONE/ACETAMINOPHEN 5/325 MG TAB PO PRN ×2 (08:47→16:01)
[2019-05-05] MEDS: FAMOTIDINE/PF 20 MG/2 ML VIAL IV SCH ×2 (08:48→20:52)
[2019-05-05] MEDS ORDERED: ENOXAPARIN SODIUM 30 MG/0.3 ML SQ SCH (09:00)
--- NOTE | 2019-05-05 09:08 | NUR ---
MD REQUEST/CONCERN Approached by Dr. Thomas at 07 - discussing plan for this patient; Readmission, stage IV pancreatic cancer, no insurance coverage; pt was to have palliative chemo by Dr. Disla on discharge; '[facility] indigent waiting list till may' as per MD; asking- is there a way to speed up and get funding faster? CM advised MD unlikely as this is a palliative treatment, not curative treatment. Hospice discussed; [facility] will be needed if family agreeable. MD states not a candidate for GIP per his assessment at this time. Reviewed order by MD; will defer this conversation to the ; Kierra called and informed and pt history given..
[2019-05-05 09:14] VITALS: BP 114/87
--- NOTE | 2019-05-05 09:45 | NUR ---
DYSPHAGIA EVAL COMPLETED. MBSS RECOMMENDED. RECOMMEND MECHANICAL SOFT/GROUND, THIN LIQUIDS; PILLS WHOLE WITH APPLESAUCE/PUDDING. PATIENT INFORMATION: Pt IS A 53 YEAR OLD MALE REFERRED FOR A BEDSIDE DYSPHAGIA SECONDARY TO COUGHING WITH THIN LIQUIDS. Pt REPORTS THAT HE HAS BEEN HAVING DIFFICULTY SWALLOWING FOR A MONTH. HE STATES THAT IT IS DIFFICULT TO SWALLOW. Pt CURRENTLY ADMITTED SECONDARY TO DEHYDRATION, HYPONATREMIA, HYPERKALEMIA, FAILURE TO THRIVE, MALIGNANT ASCITES. Pt HAS A PAST MEDICAL HISTORY SIGNIFICANT FOR PANCREATIC CANCER (DIAGNOSED 03/2019), DM, HYPERTENSION, ASCITES. Pt WITH HORSED VOCAL QUALITY, WHICH HE STATES BEGAN APPROXIMATELY 1 MONTH AGO. EVALUATION: Pt PRESENTS WITH ADEQUATE ORAL MOTOR COORDINATION, ROM AND STRENGTH. Pt COMPLAINS OF ODYNOPHAGIA DURING ALL TRIALS. Pt PRESENTS WITH MILD PHARYNGEAL DYSPHAGIA CAUSED BY DELAYED PHARYNGEAL RESPONSE TIME EVIDENCED BY GRIMACING DURING SWALLOW, MULTIPLE SWALLOWS PER BOLUS, POOR APPETITE. NO OVERT S/S OF ASPIRATION PRESENT AT THE TIME OF THE EVALUATION. MBSS IS HIGHLY RECOMMENDED TO EVALUATE CURRENTLY SWALLOW FUNCTION AND RULE OUT SILENT ASPIRATION AND POSSIBLE ETIOLOGY OF ODYNOPHAGIA. RECOMMENDATIONS: 1. MECHANICAL SOFT/GROUND, THIN LIQUIDS; PILLS WHOLE WITH LIQUIDS 2. MBSS. 3. COMPENSATORY STRATEGIES: *SLOW RATE *SMALL BITES AND SIPS *SEATED AT 90 DEGREES DURING P.O. G-CODES SWALLOWING: [id number] Addendum: 05/05/19 at 1143 by MILAGROS HANCOCK, SPT ST Amended: Links added.
--- NOTE | 2019-05-05 11:23 | NUR ---
FUNDING vs [facility] Emily spoke to Sang at [facility]. Per Sang, pt does not qualify for traditional Medicaid, [place] been [place], can get ER medicaid, but this will not cover treatments outside hospital, neither will [place] Indigent. Emily met with daughter and explained this. Educated daughter on palliative treatment vs hospice. Educated on [facility], and that it is difficult to find at this time, but can try if this what family is agreeable to. Daughter states is out looking for insurance coverage at this time and will be back later. Sw to f/u and assist as able
[2019-05-05 11:42] VITALS: BP 136/84
--- NOTE | 2019-05-05 11:58 | NUR ---
XENIA Diaz met with pt who lives with Felicia Pelaez [phone]. assists with ADLS, has sydnie, no in home care services. trying to secure insurance policy for chemo treatment, family considering hospice, if [facility] hospice bed located. Sw to f/u with on decision Addendum: 05/05/19 at 1202 by KALA VELÁZQUEZ SS Amended: Links added.
--- NOTE | 2019-05-05 12:05 | NUR ---
SHORT OF BREATH PATIENT SITTING UP IN CHAIR, REPORTS FEELING "SHORT OF BREATH". TRANSFERRED TO BED, PLACE PATIENT ON 02 AT 3L VIA NASAL CANNULA. OBTAINED OXYGEN SATURATION READING 100%. CALL DR. BRANTLEY TO REPORT PATIENT SYMPTOMS, ORDERS PLACE BY .
[2019-05-05] MEDS ORDERED: IPRATROPIUM/ALBUTEROL SULFATE 3 ML SOLUTION IH ONE (12:17)
--- NOTE | 2019-05-05 12:25 | NUR ---
PARACENTESIS RESCHEDULED FOR 05/06/19 DR. BRANTLEY AWARE US GUIDED PARACENTESIS RESCHEDULED FOR 05/06/19 BECAUSE PATIENT RECEIVED LOVENOX 30MG SQ TODAY. MD ORDERED TO HOLD LOVENOX FOR PENDING PROCEDURE TOMORROW.
[2019-05-05] MEDS: DIAZEPAM 5 MG/ML 2 ML SYG IV PRN (13:05)
--- NOTE | 2019-05-05 13:55 | NUR ---
RD Notification Pt with poor PO appetite x1mo.; RD rec to add appetite stimulant. RD to also add Glucerna at meal times. RD to continue to monitor appetite improvement. Pt LBM 05/04/19. Pt monitored labs: K 5.3, Glu 276, A1C 8.9, NH3 4, Alb 2.1, Na 128, Cl 93, BUN 24, Alk 182, TCK 7. RD to continue to monitor. Please notify RD as nutritional concerns arise. Thank you. Addendum: 05/05/19 at [address] Amended: Links added.
[2019-05-05 16:17] VITALS: BP 138/82
[2019-05-05] MEDS ORDERED: HYDROMORPHONE 1 MG/1 ML AMP IVP ONE (17:08)
[2019-05-05] MEDS: IPRATROPIUM/ALBUTEROL SULFATE 3 ML SOLUTION IH PRN (18:36)
[2019-05-05 20:00] VITALS: BP 133/79
[2019-05-06] VITALS (13 sets, daily range): BP systolic 104–150; BP diastolic 63–92
[2019-05-06] MEDS: DIAZEPAM 5 MG/ML 2 ML SYG IV PRN (00:11)
[2019-05-06] MEDS: HYDROCODONE/ACETAMINOPHEN 10/325 MG TAB PO PRN ×3 (02:20→21:22)
[2019-05-06 04:12] LABS: HEMATOCRIT 34.3 % (42-54); MEAN CORPUSCULAR HEMOGLOBIN 30.8 pg (27.0-33.0); MEAN CORPUSCULAR HGB CONC 34.3 g/dL (32.0-36.0); MEAN CORPUSCULAR VOLUME 89.7 fL (79-99); PLATELET COUNT (AUTO) 362 K/uL (130-400); RED BLOOD CELL COUNT(AUTO) 3.83 MIL/uL (4.50-6.20); RED CELL DISTRIBUTION WIDTH 12.9 % (11.0-15.5); WHITE BLOOD COUNT (AUTO) 10.5 K/uL (4.8-10.8)
[2019-05-06 04:17] LABS: CREATININE 0.6 mg/dL (0.5-1.5); POTASSIUM 4.5 mmol/L (3.5-5.1)
[2019-05-06] MEDS ORDERED: KETOROLAC TROMETHAMINE 30MG/ML ONE (04:59)
[2019-05-06] MEDS: IPRATROPIUM/ALBUTEROL SULFATE 3 ML SOLUTION IH PRN ×2 (06:09→18:26)
[2019-05-06] MEDS: INSULIN HUMULIN R 100 UNIT/ML 3ML SQ SCH ×4 (06:42→23:30)
[2019-05-06] MEDS: LUBIPROSTONE 24 MCG CAP PO SCH ×2 (08:20→17:04)
[2019-05-06] MEDS: FAMOTIDINE/PF 20 MG/2 ML VIAL IV SCH ×2 (08:21→21:17)
--- NOTE | 2019-05-06 09:40 | NUR ---
U/S GD PARACENTESIS PROCEDURE PERFORMED BY DR LANDA. PUNCTURE SITE RIGHT UPPER QUADRANT AND PATIENT TOLERATED PROCEDURE WELL. TOTAL REMOVED 5.0 LITERS OF CLOUDY THICK YELLOW FLUID. END OF PROCEDURE AT 1015. CATHETER REMOVED AND DRESSING APPLIED. NO BLEEDING NOTED. REPORT GIVEN TO MACHO CASTILLO AND PATIENT TRANSPORTED TO 4TH FLOOR RM 420 VIA W/C. AAO X3 WITH NO C/O PAIN.
--- NOTE | 2019-05-06 10:14 | NUR ---
f/u visit Sw met with pt's daughter who states that pt is feeling better today, and that pt's is going to office with letter from MD stating that pt needs chemo so they can approve pt for Medicaid to get it. Daughter called on phone and told her that Sw was there and needing decision on what dcp was. stated that they wanted to do chemo treatments not hospice. CM informed. Sang at [facility] also aware of above
[2019-05-06] MEDS ORDERED: ALBUMIN IV SCH ×2 (10:55)
--- NOTE | 2019-05-06 13:40 | NUR ---
MBSS COMPLETED. -S/S OF ASPIRATION. RECOMMEND REGULAR, THIN LIQUIDS; PILLS WHOLE WITH LIQUIDS. PATIENT INFORMATION: Pt IS A 53 YEAR OLD MALE REFERRED FOR AN MBSS SECONDARY TO COMPLAINS OF ODYNOPHAGIA DURING BEDSIDE DYSPHAGIA EVAL. Pt S/P PARACENTESIS TODAY WITH IMPROVED OVERALL STATUS. Pt CURRENTLY ADMITTED SECONDARY TO DEHYDRATION, HYPONATREMIA, HYPERKALEMIA, FAILURE TO THRIVE, MALIGNANT ASCITES. Pt HAS A PAST MEDICAL HISTORY SIGNIFICANT FOR PANCREATIC CANCER (DIAGNOSED 03/2019), DM, HYPERTENSION, ASCITES. Pt WITH HORSED VOCAL QUALITY, WHICH HE STATES BEGAN APPROXIMATELY 1 MONTH AGO. MBSS INTERPRETATION: SWALLOW FUNCTION AND EFFICIENCY WITHIN FUNCTIONAL LIMITS. ORAL MOTOR STRENGTH, COORDINATION, AND ROM WITHIN FUNCTIONAL LIMITS. LARYNGEAL ELEVATION/EXCURSION STRONG WITH TIMELY PHARYNGEAL RESPONSE. NO OVERT S/S OF ASPIRATION OR PENETRATION DURING THE MBSS. PLEASE NOTE Pt DID PRESENTS WITH MILD POOLING IN THE [place] (CLEARED WITH INNATE RE-SWALLOW). NO RISKS OF ASPIRATION AT THIS TIME. RECOMMENDATIONS: 1. REGULAR, THIN LIQUIDS; PILLS WHOLE WITH LIQUIDS 2. COMPENSATORY STRATEGIES: *SEATED AT 90 DEGREES RESULTS AND RECOMMENDATIONS WERE REVIEWED WITH Pt AND FAMILY IN [place] LANGUAGE OF [place]. ALL QUESTIONS ANSWERED AT THIS TIME. SKILLED SPEECH THERAPY IS NOT RECOMMENDED. G-CODES SWALLOWING: [id number] Addendum: 05/06/19 at 1347 by MILAGROS HANCOCK [facility] Amended: Links added.
[2019-05-06 13:50] LABS: SPECIMENTYPE,BODY FLUID ASCITES
[2019-05-06 13:51] LABS: APPEARANCE BODY FLUID CLOUDY (CLEAR); COLOR,BODY FLUID YELLOW (LT YELLOW); TOTAL VOLUME,BODY FLUID 5000 mL
[2019-05-06 13:52] LABS: BODY FLUID RBC 1700 /cu. mm.; BODY FLUID WBC 604 /cu. mm.
[2019-05-06 13:58] LABS: BF LYMPHOCYTE 89 %; BF MONOCYTE 5 %
--- NOTE | 2019-05-06 14:00 | NUR ---
Notified Dr. Disla's office of consult.
[2019-05-06] MEDS: KETOROLAC TROMETHAMINE 30MG/ML IV PRN (17:05)
[2019-05-06] MEDS: ENOXAPARIN SODIUM 30 MG/0.3 ML SQ SCH (21:17)
[2019-05-06] MEDS: SODIUM POLYSTYRENE SULFONATE 15 GM/60 ML ML RC SCH (22:45)
[2019-05-07 03:25] LABS: HEMATOCRIT 33.7 % (42-54); MEAN CORPUSCULAR HEMOGLOBIN 30.8 pg (27.0-33.0); MEAN CORPUSCULAR HGB CONC 34.3 g/dL (32.0-36.0); MEAN CORPUSCULAR VOLUME 89.7 fL (79-99); NUCLEATED RED BLOOD CELLS 0.1 % (0.0-0.19); PLATELET COUNT (AUTO) 318 K/uL (130-400); RED BLOOD CELL COUNT(AUTO) 3.76 MIL/uL (4.50-6.20); RED CELL DISTRIBUTION WIDTH 12.7 % (11.0-15.5)
[2019-05-07 03:39] VITALS: BP 126/85
[2019-05-07 03:41] LABS: CREATININE 0.7 mg/dL (0.5-1.5); POTASSIUM 4.2 mmol/L (3.5-5.1)
[2019-05-07] MEDS: IPRATROPIUM/ALBUTEROL SULFATE 3 ML SOLUTION IH PRN ×2 (06:17→18:00)
[2019-05-07] MEDS: INSULIN HUMULIN R 100 UNIT/ML 3ML SQ SCH ×4 (07:08→20:42)
[2019-05-07 07:30] VITALS: BP 118/74
[2019-05-07] MEDS: LUBIPROSTONE 24 MCG CAP PO SCH ×2 (08:06→16:54)
[2019-05-07] MEDS: FAMOTIDINE/PF 20 MG/2 ML VIAL IV SCH ×2 (08:06→21:15)
[2019-05-07] MEDS: ENOXAPARIN SODIUM 30 MG/0.3 ML SQ SCH (08:07)
[2019-05-07] MEDS: HYDROCODONE/ACETAMINOPHEN 10/325 MG TAB PO PRN ×3 (08:08→21:17)
[2019-05-07 11:00] VITALS: BP 123/80
--- NOTE | 2019-05-07 15:05 | NUR ---
Paged Dr. Disla's answering service as he had not come for the consult. Dr. Oconnor validation software facilitator, had him paged by the answering service.
[2019-05-07 16:00] VITALS: BP 124/81
[2019-05-07] MEDS: DIAZEPAM 5 MG/ML 2 ML SYG IV PRN (18:09)
[2019-05-07 19:00] VITALS: BP 144/84
[2019-05-07] MEDS: SODIUM POLYSTYRENE SULFONATE 15 GM/60 ML ML RC SCH (20:45)
[2019-05-08] VITALS: BP 140/86
[2019-05-08 04:00] VITALS: BP 143/88
[2019-05-08 05:27] LABS: MEAN CORPUSCULAR HGB CONC 33.5 g/dL (32.0-36.0); MEAN CORPUSCULAR VOLUME 89.4 fL (79-99); PLATELET COUNT (AUTO) 355 K/uL (130-400); RED BLOOD CELL COUNT(AUTO) 3.91 MIL/uL (4.50-6.20); WHITE BLOOD COUNT (AUTO) 9.4 K/uL (4.8-10.8)
[2019-05-08 05:40] LABS: CREATININE 0.7 mg/dL (0.5-1.5); POTASSIUM 4.2 mmol/L (3.5-5.1)
[2019-05-08] MEDS: IPRATROPIUM/ALBUTEROL SULFATE 3 ML SOLUTION IH PRN (06:12)
[2019-05-08] MEDS: INSULIN HUMULIN R 100 UNIT/ML 3ML SQ SCH ×2 (06:13→11:52)
[2019-05-08 07:30] VITALS: BP 134/84
[2019-05-08] MEDS ORDERED: ENOXAPARIN SODIUM 30 MG/0.3 ML SQ SCH (09:00)
[2019-05-08] MEDS: FAMOTIDINE/PF 20 MG/2 ML VIAL IV SCH (09:07)
[2019-05-08] MEDS: LUBIPROSTONE 24 MCG CAP PO SCH (09:07)
[2019-05-08] MEDS: HYDROCODONE/ACETAMINOPHEN 10/325 MG TAB PO PRN (09:09)
[2019-05-08] MEDS ORDERED: METOPROLOL TARTRATE 25 MG TAB PO SCH (10:45)
[2019-05-08 11:00] VITALS: BP 133/83
[2019-05-08] MEDS: KETOROLAC TROMETHAMINE 30MG/ML IV PRN (12:18)
[2019-05-08 16:00] VITALS: BP 150/87
== END 2019-05-08 16:45 | disposition home or self-care (01) | DRG 436 ==
LOC: EDH 19:46 → EDHIP 19:47 → 4CH 05-05 01:13
PROVIDERS: ADMIT Internal Medicine; ATTEND Internal Medicine
PROC: 0W9G3ZZ Drainage of Peritoneal Cavity, Percutaneous Approach (ICD-10-PCS; principal; 2019-05-06)
DX: C25.9 Malignant neoplasm of pancreas, unspecified (principal); R18.0 Malignant ascites; E44.0 Moderate protein-calorie malnutrition; E87.1 Hypo-osmolality and hyponatremia; C79.9 Secondary malignant neoplasm of unspecified site; E86.0 Dehydration; E87.5 Hyperkalemia; E11.9 Type 2 diabetes mellitus without complications; R62.7 Adult failure to thrive; I10 Essential (primary) hypertension; R13.10 Dysphagia, unspecified; Z68.22 Body mass index [BMI] 22.0-22.9, adult; Z79.4 Long term (current) use of insulin; Z80.0 Family history of malignant neoplasm of digestive organs; Z82.79 Family history of other congenital malformations, deformations and chromosomal abnormalities; Z83.3 Family history of diabetes mellitus; Z83.6 Family history of other diseases of the respiratory system; Z82.49 Family history of ischemic heart disease and other diseases of the circulatory system
CPT/HCPCS: 36415; 49083; 71045; 74230; 80048; 80053; 81001; 82140; 82550; 82948; 83036; 83605; 83690; 83735; 83880; 84132; 84484; 85025; 85027; 85610; 85730; 87071; 87205; 89051; 92610; 92611; 93005; 94640; 94664; 96365; G0378; J1170; J1650; J1815; J1885; J3360; J3490; J7030; J7040; P9046; P9047

== ENCOUNTER 2019-05-29 07:44 | Inpatient (IN) | payer OTHER ==
[~2019-05-29] VITALS: Ht 167.6 cm; Wt 58.7 kg
[2019-05-29] VITALS (26 sets, daily range): BP systolic 64–121; BP diastolic 34–70
[~2019-05-29 07:44] MED LIST changes: -RANI300C PO
[2019-05-29 07:57] LABS: ABG BASE EXCESS -26.1 mmol/L (-2.0-3.0); ABG HCO3 9.4 mmol/L (21.0-28.0); ABG OXYGEN SATURATION 94.6 % (95.0-99.0); ABG PCO2 71 mmHg (35-48)
[2019-05-29 08:04] LABS: BASOPHILS % (AUTO) 0.8 % (0.0-5.0); HEMATOCRIT 34.4 % (42-54); LYMPHOCYTES % (AUTO) 32.2 % (21.0-51.0); MEAN CORPUSCULAR HEMOGLOBIN 29.9 pg (27.0-33.0); MEAN CORPUSCULAR HGB CONC 31.1 g/dL (32.0-36.0); MEAN CORPUSCULAR VOLUME 96.1 fL (79-99); MONOCYTES % (AUTO) 3.3 % (3.0-13.0); NEUTROPHILS % (AUTO) 63.7 % (40.0-77.0); NUCLEATED RED BLOOD CELLS 0.2 % (0.0-0.19); PLATELET COUNT (AUTO) 150 K/uL (130-400); RED BLOOD CELL COUNT(AUTO) 3.58 MIL/uL (4.50-6.20); RED CELL DISTRIBUTION WIDTH 15.6 % (11.0-15.5); WHITE BLOOD COUNT (AUTO) 13.7 K/uL (4.8-10.8)
[2019-05-29] MEDS ORDERED: NOREPINEPHRINE BITARTRATE 1 MG/1 ML ML IV ONE (08:07)
[2019-05-29] MEDS ORDERED: SODIUM CHLORIDE 0.9% 250 ML IV ONE (08:08)
[2019-05-29 08:23] LABS: ALBUMIN 1.4 g/dL (3.5-5.0); BILIRUBIN,TOTAL 0.4 mg/dL (0.2-1.0); CREATININE 2.2 mg/dL (0.5-1.5); TOTAL PROTEIN, SERUM 5.1 g/dL (6.0-8.3)
[2019-05-29 08:30] LABS: INR 1.14 (0.85-1.15); PARTIAL THROMBOPLASTIN TIME 38.8 SEC (26.3-35.5); PROTHROMBIN TIME 11.9 SEC (9.6-11.6)
[2019-05-29 08:33] LABS: POTASSIUM 6.4 mmol/L (3.5-5.1)
[2019-05-29] MEDS ORDERED: WATER IVP SCH (08:45)
[2019-05-29] MEDS ORDERED: SODIUM BICARB 8.4% IVP SCH (08:45)
[2019-05-29] MEDS ORDERED: INSULIN R PO SS1 SQ SCH (08:45)
[2019-05-29] MEDS ORDERED: DEXTROSE 5% IVP SCH (08:45)
[2019-05-29] MEDS ORDERED: SYRING IVP SCH (08:45)
[2019-05-29] MEDS ORDERED: SODIUM CHLORIDE 0.9% 1000ML 1,000 ML IV SCH (08:45)
[2019-05-29] MEDS ORDERED: CALCIUM GLUCONATE 1 GM/10 ML VIAL IV STA (08:53)
[2019-05-29] MEDS ORDERED: DEXTROSE 50%-WATER 50 ML DISP.SYRIN IV ONE (08:58)
[2019-05-29] MEDS ORDERED: DEXTROSE 50%-WATER 25 GM/50 ML VIAL IV SCH (09:00)
[2019-05-29] MEDS ORDERED: INSULIN HUMULIN R 100 UNIT/ML 3ML IV SCH (09:00)
[2019-05-29] MEDS ORDERED: FAMOTIDINE/PF 20 MG/2 ML VIAL IV SCH (09:00)
[2019-05-29] MEDS ORDERED: GLYBURIDE PO (09:06)
[2019-05-29] MEDS ORDERED: HYDR-4060 PO (09:06)
[2019-05-29] MEDS ORDERED: METF-444 PO (09:06)
[2019-05-29] MEDS ORDERED: NOREPINEPHRINE 4MG/NS 250ML 250 ML IV SCH (09:15)
[2019-05-29] MEDS ORDERED: CALCIUM GLUCONATE 2 GM in SODIUM CHLORIDE 0.9% 100 ML IV SCH (09:15)
[2019-05-29] MEDS ORDERED: DEXTROSE 50%-WATER 50 ML DISP.SYRIN IV SCH ×2 (09:15)
[2019-05-29 09:33] LABS: ABG BASE EXCESS -20.5 mmol/L (-2.0-3.0); ABG HCO3 10.4 mmol/L (21.0-28.0); ABG PCO2 46 mmHg (35-48)
[2019-05-29] MEDS ORDERED: MORPHINE SULFATE 2 MG/ML 1ML SYG IVP PRN (12:15)
[2019-05-29] MEDS ORDERED: LORAZEPAM 2 MG/ML 1 ML VIAL IVP SCH (12:15)
--- NOTE | 2019-05-29 12:44 | NUR ---
WITHDRAWAL OF CARE FORM SIGNED PER PT'S AND PT'S DAUGHTER. EXTUBATED AT THIS TIME AND ALL MEDICATIONS DISCONTINUED AT THIS TIME, PLACED ON O2 AT 2L VIA NASAL CANNULA
--- NOTE | 2019-05-29 13:25 | NUR ---
NO PERIPHERAL PULSES, NO BLOOD PRESSURE NOTED, NO BREATH SOUNDS NOTED ANTERIORLY OR POSTERIORLY. JOHAN. PUPILS DILATED AND FIXED. PRONOUNCEMENT OF DONE AT THIS TIME, XIAO RIVERA RN AND ROBIN SPENCER RN AT BEDSIDE TO WITNESS PRONOUNCEMENT OF . PT'S AND DAUGHTER AT BEDSIDE.
--- NOTE | 2019-05-29 13:30 | NUR ---
DR SONYA GHOTRA MADE AWARE ABOUT PT'S EXPIRING
--- NOTE | 2019-05-29 13:39 | NUR ---
YANELY NOTIFIED ABOUT PATIENT'S , REFERENCE # [id number], SPOKE TO FER, PENDING EYE BANK TO RETURN CALL
[2019-05-29] MEDS ORDERED: PROPOFOL 1000 MG/100 ML IV PRN (15:15)
[2019-05-29] MEDS ORDERED: ERYTHROMYCIN LACTOBIONATE 250 MG in SODIUM CHLORIDE 0.9% 100 ML IV SCH (15:15)
[2019-05-29] MEDS ORDERED: NOREPINEPHRINE 4MG/NS 250ML 250 ML IV PRN (15:15)
== END 2019-05-29 13:25 | disposition expired | DRG 297 ==
LOC: EDH 07:44 → EDHIP 07:45 → 2BH 08:21
PROVIDERS: ADMIT Internal Medicine; ATTEND Internal Medicine
PROC: 5A12012 Performance of Cardiac Output, Single, Manual (ICD-10-PCS; principal; 2019-05-29)
PROC: 0BH17EZ Insertion of Endotracheal Airway into Trachea, Via Natural or Artificial Opening (ICD-10-PCS; 2019-05-29)
PROC: 5A1935Z Respiratory Ventilation, Less than 24 Consecutive Hours (ICD-10-PCS; 2019-05-29)
DX: I46.9 Cardiac arrest, cause unspecified (principal); R40.3 Persistent vegetative state; Z51.5 Encounter for palliative care; Z66 Do not resuscitate; I10 Essential (primary) hypertension; Z79.4 Long term (current) use of insulin; Z85.9 Personal history of malignant neoplasm, unspecified; Z80.0 Family history of malignant neoplasm of digestive organs; Z82.79 Family history of other congenital malformations, deformations and chromosomal abnormalities; Z83.3 Family history of diabetes mellitus; Z83.6 Family history of other diseases of the respiratory system; Z82.49 Family history of ischemic heart disease and other diseases of the circulatory system
CPT/HCPCS: 36415; 36600; 71045; 80053; 82140; 82435; 82803; 82947; 82948; 83605; 84132; 84295; 84484; 85018; 85025; 85610; 85730; 87040; 92950; 93005; 94002; 99291; G0378; J0610; J1364; J1815; J2060; J3490; J7030; J7070